=== PATIENT | female | born 1940 | race African-American/Black ===

== ENCOUNTER 2017-10-04 02:32 | Observation (INO) | payer MEDICARE, MEDICAID ==
[~2017-10-04] VITALS: Ht 167.6 cm; Wt 93.0 kg
[2017-10-04] VITALS (7 sets, daily range): BP systolic 118–166; BP diastolic 60–101; PULSE 75–118; RESP 14–20; TEMP 97.7–98.4; O2SAT 96–100
[~2017-10-04 02:32] MED LIST: ERGO400T PO; ERYTOIN10 RIGHT EYE; FLUT50SP EACH NARE; HYDR-3516 PO; LEVOTAB PO; LOSA50TA PO; METF500T PO; MULT1TAB PO; OMEP20TA93 PO; PRIM250T PO; TRIA.025%T TOPICAL
[2017-10-04] MEDS ORDERED: PANTOPRAZOLE SODIUM 40 MG VIAL IVP ONE (03:15)
[2017-10-04] MEDS ORDERED: FAMOTIDINE 20 MG/2 ML VIAL IV PUSH ONE (03:15)
[2017-10-04] MEDS ORDERED: SODIUM CHLORIDE 0.9% FLUSH 10 ML FLUSH IV FLUSH PRN ×2 (03:15→05:45)
[2017-10-04 03:16] LABS: AUTOMATED NEUTROPHIL # 6.1 TH/MM3 (1.8-7.7); BASOPHIL % 0.4 % (0.0-2.0); EOSINOPHIL # 0.2 TH/MM3 (0-0.4); EOSINOPHIL % 2.5 % (0.0-4.0); HEMATOCRIT 36.6 % (35.0-46.0); HEMOGLOBIN 12.1 GM/DL (11.6-15.3); LYMPH % 24.5 % (9.0-44.0); LYMPHOCYTE # 2.3 TH/MM3 (1.0-4.8); MEAN CELL VOLUME 92.5 FL (80.0-100.0); MEAN CORPUSCULAR HEMOGLOBIN 30.6 PG (27.0-34.0); MEAN CORPUSCULAR HGB CONC 33.1 % (32.0-36.0); MEAN PLATELET VOLUME 8.3 FL (7.0-11.0); MONO % 8.1 % (0.0-8.0); MONOCYTE # 0.8 TH/MM3 (0-0.9); NEUT % 64.5 % (16.0-70.0); PLATELET COUNT 263 TH/MM3 (150-450); RED BLOOD COUNT 3.96 MIL/MM3 (4.00-5.30); WHITE BLOOD COUNT 9.5 TH/MM3 (4.0-11.0)
[2017-10-04] MEDS ORDERED: OMEP20TA93 PO (03:30)
[2017-10-04 03:50] LABS: ALBUMIN 3.3 GM/DL (3.4-5.0); ALT (GPT) 16 U/L (10-53); AST (GOT) 14 U/L (15-37); BICARBONATE 24.8 MEQ/L (21.0-32.0); BLOOD UREA NITROGEN 19 MG/DL (7-18); CALCIUM 8.5 MG/DL (8.5-10.1); CHLORIDE 106 MEQ/L (98-107); CREATININE 0.82 MG/DL (0.50-1.00); GLOMERULAR FILTRATION RATE 82 ML/MIN (>89); GLUCOSE,RANDOM 148 MG/DL (74-106); SODIUM (NA) 140 MEQ/L (136-145)
[2017-10-04 03:52] LABS: ALKALINE PHOSPHATASE 119 U/L (45-117); TOTAL BILIRUBIN ADULT 0.3 MG/DL (0.2-1.0); TOTAL PROTEIN 7.5 GM/DL (6.4-8.2)
--- NOTE | 2017-10-04 03:59 | PD ---
HPI Chief Complaint: GI Complaint Time Seen by Provider: 03:13 Travel History International Travel<30 days: No Contact w/Intl Traveler<30days: No Traveled to known affect area: No History of Present Illness HPI Patient is a 77-year-old female who tonight sat on the toilet and had bright red blood per rectum in the toilet. Patient has a history 2 years ago of having a heavy bleed after having C. difficile she had excessive diarrhea and then return to [facility]. She also says she had a episode of bleeding from hemorrhoids. She had seen Dr. Pedro the colorectal surgeon but denies ever having surgery or any need for colostomy. Patient is not diaphoretic not hypotensive however she does have bright red blood on her lower legs and feet. She denies abdomen pain she denies change in stool color she denies any other symptoms no pain in her abdomen. She reports having had a colonoscopy years ago with no findings. PFSH Past Medical History Asthma: Yes Cancer: No Cardiovascular Problems: Yes (HTN) Diabetes: Yes (Metformin) Patient Takes Glucophage: Yes Hypertension: Yes Psychiatric: No Respiratory: Yes (Asthma) Thyroid Disease: Yes Tubal Ligation: Yes Past Surgical History Pacemaker: No Other Surgery: Yes (HERNIA REMOVAL) Social History Alcohol Use: No Tobacco Use: No Substance Use: No Allergies-Medications (Allergen,Severity, Reaction): Coded Allergies: No Known Allergies (Unverified Allergy, Unknown, 10/04/17) Reported Meds & Prescriptions Reported Meds & Active Scripts Active Reported Omeprazole 20 Mg Tab 20 Mg PO DAILY Hydrocodone-Acetaminophen 5-325 mg Tab 1 Tab PO Q4H PRN Centrum Silver Adult 50+ (Multiple Vitamins W/ Minerals) 1 Tab Tab 1 Tab PO DAILY Primidone 250 Mg Tablet 1 Tab PO DAILY Metformin (Metformin HCl) 500 Mg Tab 500 Mg PO DAILY With a meal Losartan (Losartan Potassium) 50 Mg Tab 50 Mg PO DAILY Levocetirizine 5 Mg Tab 5 Mg PO DAILY Fluticasone Nasal [place] 50 Mcg/Act Naspr 50 Mcg EACH NARE BID 50 mcg/spray Review of Systems Except as stated in HPI: all other systems reviewed are Neg Physical Exam Narrative GENERAL: Awake alert nontoxic-appearing SKIN: Warm and dry. HEAD: Atraumatic. Normocephalic. EYES: Pupils equal and round. No scleral icterus. No injection or drainage. ENT: No nasal bleeding or discharge. Mucous membranes pink and moist. NECK: Trachea midline. No JVD. CARDIOVASCULAR: Regular rate and rhythm. RESPIRATORY: No accessory muscle use. Clear to auscultation. Breath sounds equal bilaterally. GASTROINTESTINAL: Abdomen soft, non-tender, nondistended. Hepatic and splenic margins not palpable. MUSCULOSKELETAL: Extremities without clubbing, cyanosis, or edema. No obvious deformities. Rectal exam bright red blood per rectum NEUROLOGICAL: Awake and alert. No obvious cranial nerve deficits. Motor grossly within normal limits. Five out of 5 muscle strength in the arms and legs. Normal speech. PSYCHIATRIC: Appropriate mood and affect; insight and judgment normal. Data Data Last Documented VS Vital Signs Date Time Temp Pulse Resp B/P (MAP) Pulse Ox O2 Delivery O2 Flow Rate FiO2 10/04/17 05:14 94 18 118/73 (88) 97 Room Air 10/04/17 02:43 97.7 Orders Orders Complete Blood Count With Diff (10/04/17 02:48) Prothrombin Time / Inr (Pt) (10/04/17 02:48) Act Partial Throm Time (Ptt) (10/04/17 02:48) Ecg Monitoring (10/04/17 02:48) Orthostatic Vital Signs (10/04/17 02:48) Oximetry (10/04/17 02:48) Oxygen Administration (10/04/17 02:48) Iv Access Insert/Monitor (10/04/17 02:48) Type And Screen (10/04/17 02:48) Lipase (10/04/17 03:14) Urinalysis - C+S If Indicated (10/04/17 03:14) Abdomen, Flat & Upright (10/04/17 ) Pantoprazole Inj (Protonix Inj) (10/04/17 03:15) Sodium Chloride 0.9% Flush (Ns Flush) (10/04/17 03:15) Famotidine Inj (Pepcid Inj) (10/04/17 03:15) Comprehensive Metabolic Panel (10/04/17 03:25) Admit Order (Ed Use Only) (10/04/17 05:30) C Diff Toxin Pcr (10/04/17 05:32) Place In Observation (10/04/17 ) Vital Signs (Adult) Q4H (10/04/17 05:35) Activity Oob With Assistance (10/04/17 05:35) Diet Clear Liquid (10/04/17 Breakfast) Sodium Chloride 0.9% Flush (Ns Flush) (10/04/17 05:45) Sodium Chloride 0.9% Flush (Ns Flush) (10/04/17 09:00) Acetaminophen (Tylenol) (10/04/17 05:45) Scd Bilateral/Knee High RYAN.BID (10/04/17 05:35) Naloxone Inj (Narcan Inj) (10/04/17 05:45) Magnesium Hydroxide Liq (Milk Of Magnesi (10/04/17 05:45) Sennosides (Senokot) (10/04/17 05:45) Bisacodyl Supp (Dulcolax Supp) (10/04/17 05:45) Lactulose Liq (Lactulose Liq) (10/04/17 05:45) Consult Gastroenterology (10/04/17 ) Labs Laboratory Tests Test 10/04/17 03:00 10/04/17 03:25 10/04/17 04:55 White Blood Count 9.5 TH/MM3 Red Blood Count 3.96 MIL/MM3 Hemoglobin 12.1 GM/DL Hematocrit 36.6 % Mean Corpuscular Volume 92.5 FL Mean Corpuscular Hemoglobin 30.6 PG Mean Corpuscular Hemoglobin Concent 33.1 % Red Cell Distribution Width 14.0 % Platelet Count 263 TH/MM3 Mean Platelet Volume 8.3 FL Neutrophils (%) (Auto) 64.5 % Lymphocytes (%) (Auto) 24.5 % Monocytes (%) (Auto) 8.1 % Eosinophils (%) (Auto) 2.5 % Basophils (%) (Auto) 0.4 % Neutrophils # (Auto) 6.1 TH/MM3 Lymphocytes # (Auto) 2.3 TH/MM3 Monocytes # (Auto) 0.8 TH/MM3 Eosinophils # (Auto) 0.2 TH/MM3 Basophils # (Auto) 0.0 TH/MM3 CBC Comment DIFF FINAL Differential Comment Prothrombin Time 10.0 SEC Prothromb Time International Ratio 1.0 RATIO Activated Partial Thromboplast Time 26.0 SEC Blood Urea Nitrogen 19 MG/DL Creatinine 0.82 MG/DL Random Glucose 148 MG/DL Total Protein 7.5 GM/DL Albumin 3.3 GM/DL Calcium Level 8.5 MG/DL Alkaline Phosphatase 119 U/L Aspartate Amino Transf (AST/SGOT) 14 U/L Alanine Aminotransferase (ALT/SGPT) 16 U/L Total Bilirubin 0.3 MG/DL Sodium Level 140 MEQ/L Potassium Level 4.0 MEQ/L Chloride Level 106 MEQ/L Carbon Dioxide Level 24.8 MEQ/L Anion Gap 9 MEQ/L Estimat Glomerular Filtration Rate 82 ML/MIN Lipase 96 U/L Urine Color YELLOW Urine Turbidity CLEAR Urine pH 5.0 Urine Specific [place] 1.024 Urine Protein TRACE mg/dL Urine Glucose (UA) NEG mg/dL Urine Ketones NEG mg/dL Urine Occult Blood MOD Urine Nitrite NEG Urine Bilirubin NEG Urine Urobilinogen LESS THAN 2.0 MG/DL Urine Leukocyte Esterase TRACE Urine RBC 1 /hpf Urine WBC 2 /hpf Urine Squamous Epithelial Cells 1 /hpf Urine Bacteria RARE /hpf Urine Hyaline Casts 5 /lpf Urine Mucus FEW /lpf Microscopic Urinalysis Comment CULT NOT INDICATED MDM Medical Decision Making Medical Screen Exam Complete: Yes Emergency Medical Condition: Yes Differential Diagnosis pt has rectal bleeding and cause could be AV malformation diarrhea with colitis erosion into vein bleed other Narrative Course rectal exam guiaic postive no gross blood on the glove , hemoglobin 12 admit to med surg for GI colonscopy to diagnose Diagnosis Primary Impression: Rectal bleeding Admitting Information Admitting Physician Requests: Observation Madan Flores MD October 04, 2017 03:59
--- NOTE | 2017-10-04 04:20 | RADRPT ---
EXAM DATE: 10/04/2017 4:15 AM EDT AGE/SEX: 77 years / Female INDICATIONS: Patient complains of rectal bleeding and abdominal pain. CLINICAL DATA: This is the patient's initial encounter. Patient reports that signs and symptoms have been present for 1 day and indicates a pain score of 4/10. MEDICAL/SURGICAL HISTORY: . Polyps. . Polyps removed from colon. COMPARISON: No prior [facility] exams available for comparison. FINDINGS: Supine and upright views of the abdomen were performed. There is a moderate amount stool seen in the proximal and mid aspects of the colon. Significant stool in the sigmoid colon and rectum is not seen. Dilated bowel is not seen. Degenerative change in the lower lumbar spine. There appears to be surgic al material in the lower abdomen. CONCLUSION: Moderate stool in the colon. This appears to be in the ascending, transverse and proximal descending portions of the colon. Electronically signed by: Kun Whitney MD 10/04/2017 4:19 AM EDT
[2017-10-04 05:33] LABS: BACTERIA, URINE RARE /hpf; BILIRUBIN, URINE NEG (NEG); BLOOD, URINE MOD (NEG); GLUCOSE,URINE NEG (NEG); HYALINE CAST, URINE 5 /lpf (RARE); KETONE, URINE NEG (NEG); MUCUS URINE FEW /lpf (OCC); NITRITE,URINE NEG (NEG); SQUAMOUS EPITHELIAL CELL URINE 1 /hpf (0-5); URINE COLOR YELLOW (YELLW/STRAW); URINE LEUKOCYTE ESTERASE TRACE (NEG)
[2017-10-04] MEDS ORDERED: LACTULOSE SYRUP 20 GM/30 ML CUP PO PRN (05:45)
[2017-10-04] MEDS ORDERED: SENNOSIDES 8.6 MG TAB PO PRN (05:45)
[2017-10-04] MEDS ORDERED: BISACODYL 10 MG SUPP RECTAL PRN (05:45)
[2017-10-04] MEDS ORDERED: ACETAMINOPHEN 325 MG TAB PO PRN (05:45)
[2017-10-04] MEDS ORDERED: NALOXONE HCL 0.4 MG/ML AMP IV PUSH PRN (05:45)
[2017-10-04] MEDS ORDERED: MAGNESIUM HYDROXIDE SUSP 30 ML CUP PO PRN (05:45)
--- NOTE | 2017-10-04 08:24 | HHI.HP ---
[facility] Physician Radha Sosa M.D. Admission Diagnosis rectal bleeding Diagnoses: Chief Complaint: rectal bleeding Travel History International Travel<30 Days: No Contact w/Intl Traveler <30 Da: No Traveled to Known Affected Are: No History of Present Illness 77 year old female with a history of HTN, DM2, Asthma, internal hemorrhoids and diverticulosis presented to the emergency department for evaluation of rectal bleeding. Patient sat on the toilet last night and had bright red blood per rectum in the toilet. Patient has a history 2 years ago of having a heavy bleed after having C. difficile she had excessive diarrhea and then return to blood. She also says she had a episode of bleeding from hemorrhoids. She had seen Dr. Pedro the colorectal surgeon but denies ever having surgery or any need for colostomy. Patient is not diaphoretic not hypotensive however she does have bright red blood on her lower legs and feet. She denies abdomen pain she denies change in stool color she denies any other symptoms no pain in her abdomen. She reports having had a colonoscopy years ago with no findings. Review of Systems Except as stated in HPI: all other systems reviewed are Neg Past Family Social History Past Medical History GI bleed Internal hemorrhoids Diverticulosis Asthma HTN Sinus problems Diabetes: metformin Past Surgical History Hernia removal- umbilical Reported Medications Reported Meds & Active Scripts Active Reported Omeprazole 20 Mg Tab 20 Mg PO DAILY Hydrocodone-Acetaminophen 5-325 mg Tab 1 Tab PO Q4H PRN Centrum Silver Adult 50+ (Multiple Vitamins W/ Minerals) 1 Tab Tab 1 Tab PO DAILY Primidone 250 Mg Tablet 1 Tab PO DAILY Metformin (Metformin HCl) 500 Mg Tab 500 Mg PO DAILY With a meal Losartan (Losartan Potassium) 50 Mg Tab 50 Mg PO DAILY Levocetirizine 5 Mg Tab 5 Mg PO DAILY Fluticasone Nasal [place] 50 Mcg/Act Naspr 50 Mcg EACH NARE BID 50 mcg/spray Allergies: Coded Allergies: No Known Allergies (Unverified Allergy, Unknown, 10/04/17) Family History Mom: HTN, of heart attack Dad: HTN Sister: heart attack Social History No tobacco , drug use or alcohol use. Physical Exam Vital Signs Vital Signs Date Time Temp Pulse Resp B/P (MAP) Pulse Ox O2 Delivery O2 Flow Rate FiO2 10/04/17 07:37 85 14 141/79 (99) 100 Room Air 10/04/17 05:14 94 18 118/73 (88) 97 Room Air 10/04/17 03:26 98 Room Air 10/04/17 03:26 118 18 158/101 (120) 97 Room Air 10/04/17 03:26 98 Room Air 10/04/17 02:43 97.7 112 18 166/97 (120) 96 Physical Exam GENERAL: This is a well-nourished, well-developed patient, in no apparent distress. SKIN: No rashes, ecchymoses or lesions. Cool and dry. HEAD: Atraumatic. Normocephalic. No temporal or scalp tenderness. EYES: Pupils equal round and reactive. Extraocular motions intact. No scleral icterus. No injection or drainage. ENT: Nose without bleeding, purulent drainage or septal hematoma. Throat without erythema, tonsillar hypertrophy or exudate. Uvula midline. Airway patent. NECK: Trachea midline. No JVD or lymphadenopathy. Supple, nontender, no meningeal signs. CARDIOVASCULAR: Regular rate and rhythm without murmurs, gallops, or rubs. RESPIRATORY: Clear to auscultation. Breath sounds equal bilaterally. No wheezes , rales, or rhonchi. GASTROINTESTINAL: Abdomen soft, non-tender, nondistended. No hepato-splenomegaly , or palpable masses. No guarding. MUSCULOSKELETAL: Extremities without clubbing, cyanosis, or edema. No joint tenderness, effusion, or edema noted. No calf tenderness. Negative Homans sign bilaterally. NEUROLOGICAL: Awake and alert. Cranial nerves II through XII intact. Motor and sensory grossly within normal limits. Five out of 5 muscle strength in all muscle groups. Normal speech. Laboratory Laboratory Tests Test 10/04/17 03:00 10/04/17 03:25 10/04/17 04:55 White Blood Count 9.5 Red Blood Count 3.96 Hemoglobin 12.1 Hematocrit 36.6 Mean Corpuscular Volume 92.5 Mean Corpuscular Hemoglobin 30.6 Mean Corpuscular Hemoglobin Concent 33.1 Red Cell Distribution Width 14.0 Platelet Count 263 Mean Platelet Volume 8.3 Neutrophils (%) (Auto) 64.5 Lymphocytes (%) (Auto) 24.5 Monocytes (%) (Auto) 8.1 Eosinophils (%) (Auto) 2.5 Basophils (%) (Auto) 0.4 Neutrophils # (Auto) 6.1 Lymphocytes # (Auto) 2.3 Monocytes # (Auto) 0.8 Eosinophils # (Auto) 0.2 Basophils # (Auto) 0.0 CBC Comment DIFF FINAL Differential Comment Prothrombin Time 10.0 Prothromb Time International Ratio 1.0 Activated Partial Thromboplast Time 26.0 Blood Urea Nitrogen 19 Creatinine 0.82 Random Glucose 148 Total Protein 7.5 Albumin 3.3 Calcium Level 8.5 Alkaline Phosphatase 119 Aspartate Amino Transf (AST/SGOT) 14 Alanine Aminotransferase (ALT/SGPT) 16 Total Bilirubin 0.3 Sodium Level 140 Potassium Level 4.0 Chloride Level 106 Carbon Dioxide Level 24.8 Anion Gap 9 Estimat Glomerular Filtration Rate 82 Lipase 96 Urine Color YELLOW Urine Turbidity CLEAR Urine pH 5.0 Urine Specific [place] 1.024 Urine Protein TRACE Urine Glucose (UA) NEG Urine Ketones NEG Urine Occult Blood MOD Urine Nitrite NEG Urine Bilirubin NEG Urine Urobilinogen LESS THAN 2.0 Urine Leukocyte Esterase TRACE Urine RBC 1 Urine WBC 2 Urine Squamous Epithelial Cells 1 Urine Bacteria RARE Urine Hyaline Casts 5 Urine Mucus FEW Microscopic Urinalysis Comment CULT NOT INDICATED Result Diagram: 10/04/17 0300 10/04/17 0325 Imaging Last Impressions Abdomen X-Ray 10/04/17 0000 Signed Impressions: CONCLUSION: Moderate stool in the colon. This appears to be in the ascending, transverse an d proximal descending portions of the colon. Caprini VTE Risk Assessment Caprini VTE Risk Assessment: Mod/High Risk (score >= 2) Caprini Risk Assessment Model Point Value = 1 Point Value = 2 Point Value = 3 Point Value = 5 Age 41-60 Minor surgery BMI > 25 kg/m2 Swollen legs Varicose veins or History of unexplained or recurrent spontaneous Oral contraceptives or hormone replacement Sepsis (< 1 month) Serious lung disease, including pneumonia (< 1 month) Abnormal pulmonary function Acute myocardial infarction Congestive heart failure (< 1 month) History of inflammatory bowel disease Medical patient at bed rest Age 61-74 Arthroscopic surgery Major open surgery (> 45 min) Laparoscopic surgery (> 45 min) Malignancy Confined to bed (> 72 hours) Immobilizing plaster cast Central venous access Age >= 75 History of VTE Family history of VTE Factor V Leiden Prothrombin [id number] Lupus anticoagulant Anticardiolipin antibodies Elevated serum homocysteine Heparin-induced thrombocytopenia Other congenital or acquired thrombophilia Stroke (< 1 month) Elective arthroplasty Hip, pelvis, or leg fracture Acute spinal cord injury (< 1 month) Prophylaxis Regimen Total Risk Factor Score Risk Level Prophylaxis Regimen 0-1 Low Early ambulation 2 Moderate Order ONE of the following: *Sequential Compression Device (SCD) *Heparin 5000 units SQ BID 3-4 Higher Order ONE of the following medications: *Heparin 5000 units SQ TID *Enoxaparin/Lovenox 40 mg SQ daily (WT < 150 kg, CrCl > 30 mL/min) *Enoxaparin/Lovenox 30 mg SQ daily (WT < 150 kg, CrCl > 10-29 mL/min) *Enoxaparin/Lovenox 30 mg SQ BID (WT < 150 kg, CrCl > 30 mL/min) AND/OR *Sequential Compression Device (SCD) 5 or more Highest Order ONE of the following medications: *Heparin 5000 units SQ TID (Preferred with Epidurals) *Enoxaparin/Lovenox 40 mg SQ daily (WT < 150 kg, CrCl > 30 mL/min) *Enoxaparin/Lovenox 30 mg SQ daily (WT < 150 kg, CrCl > 10-29 mL/min) *Enoxaparin/Lovenox 30 mg SQ BID (WT < 150 kg, CrCl > 30 mL/min) AND *Sequential Compression Device (SCD) Assessment and Plan Assessment and Plan 74 year old female with history of internal hemorrhoids and diverticulosis and prior GI bleed presents with lower gastrointestinal bleeding per rectum. Gastrointestinal bleed- Rectal bleeding - Gastroenterology consulted for poss colonoscopy - Patient follows with CRS as OP Francisco Willis GERD and hiatal hernia. - Continue PPIs Diabetes type II. - Hold metformin - Low dose sliding scale - Hold metformin - Diabetic diet. Hypertension. Restart home meds. On losartan . Monitor BP and adjust meds as need. Asthma, controlled at this time - Flovent 2 puffs bid. - Duonebs q6hr PRN for shortness of breath. DVT ppx: SCD/TEDs. CI chemical ppx as patient with rectal bleeding Discussed Condition With pt, nurse Marialuisa Flower MD October 04, 2017 08:24
[2017-10-04] MEDS ORDERED: ACETAMINOPHEN/HYDROcodone 325 MG/5 MG TAB PO PRN (08:30)
[2017-10-04] MEDS ORDERED: PANTOPRAZOLE SOD 20 MG DELAYED RELEASE TAB PO SCH (09:00)
[2017-10-04] MEDS: LOSARTAN 50 MG TAB PO SCH (09:18)
[2017-10-04] MEDS: FLUTICASONE PROPIONATE 50 MCG/ACT 16 GM NASAL SPRAY EACH NARE SCH ×2 (09:18→21:00)
[2017-10-04] MEDS: CETIRIZINE HCL 10 MG TAB PO SCH (09:18)
[2017-10-04] MEDS: SODIUM CHLORIDE 0.9% FLUSH 10 ML FLUSH IV FLUSH SCH ×2 (09:18→21:09)
[2017-10-04] MEDS: PRIMIDONE 250 MG TAB PO SCH (10:08)
--- NOTE | 2017-10-04 11:13 | PD.CONS ---
HPI History of Present Illness This is a 77 year old female who was admitted to the hospital on 10/04/2017 with symptoms of bright red rectal bleeding this early a.m. Patient states that she went to the bathroom to have a bowel movement and when she stood up she noticed the toilet was full of bright red blood she did note some dark blood around the stool and denies any straining. Patient now does note some lower abdominal cramping and does on occasion have some constipation. Currently patient is still having some mild rectal bleeding and oozing more controlled at this point. Abdominal x-rays done this a.m. show moderate amount of stool in the colon which appears to be in the hands sending transverse and proximal descending portions of colon. Patient denies any diarrhea, no nausea or vomiting or dysphasia. Patient does note mild dyspepsia acute on chronic and takes omeprazole 20 mg daily which controls her symptoms most of the time. According to the patient last colonoscopy was 2-3 years ago and patient does note history of polyps. Patient has no family history of colon cancer. Labs show current hemoglobin 12.1. According to the record patient has seen Dr. Pedro the colorectal surgeon in the past but denies any surgical interventions during that time. Patient is currently not taking any blood thinners. (Violeta Melchor) PFSH Past Medical History According to the record GI bleed Internal hemorrhoids Diverticulosis, history of colon polyps Asthma HTN Sinus problems Diabetes: metformin Past Surgical History Hernia removal- umbilical EGD and colonoscopy 2-3 years ago with a history of polyps (Violeta Melchor) Coded Allergies: No Known Allergies (Unverified Allergy, Unknown, 10/04/17) Medications Administered Medications Medications (Trade) Dose Ordered Sig/Janie Route PRN Reason Start Time Stop Time Status Last Admin Dose Admin Sodium Chloride (NS Flush) 2 ml BID IV FLUSH 10/04/17 09:00 10/04/17 09:18 Fluticasone Propionate (Flonase Dayo Spr) 2 spray BID EACH NARE 10/04/17 09:00 10/04/17 09:18 Losartan Potassium (Cozaar) 50 mg DAILY PO 10/04/17 09:00 10/04/17 09:18 Primidone (Mysoline) 250 mg DAILY PO 10/04/17 09:00 5/25/18 10:08 Cetirizine HCl (ZyrTEC) 10 mg DAILY PO 10/04/17 09:00 10/04/17 09:18 Family History Mom: HTN, of heart attack Dad: HTN Sister: heart attack No family history of colon cancer Social History No tobacco , drug use or alcohol use. (Violeta Melchor) Review of Systems Gastrointestinal: COMPLAINS OF: Bloody stools (Bright red rectal bleeding 1 this a.m. large amount), Nausea (Chronic GERD) (Violeta Melchor) GI Exam Vitals I&O Vital Signs Date Time Temp Pulse Resp B/P (MAP) Pulse Ox O2 Delivery O2 Flow Rate FiO2 10/04/17 07:37 85 14 141/79 (99) 100 Room Air 10/04/17 05:14 94 18 118/73 (88) 97 Room Air 10/04/17 03:26 98 Room Air 10/04/17 03:26 118 18 158/101 (120) 97 Room Air 10/04/17 03:26 98 Room Air 10/04/17 02:43 97.7 112 18 166/97 (120) 96 I/O 10/03/17 10/03/17 10/03/17 10/04/17 10/04/17 10/04/17 07:00 15:00 23:00 07:00 15:00 23:00 Intake Total 250 ml Output Total 100 ml Balance 150 ml Intake Oral 250 ml Output Stool Total 100 ml # Bowel Movements 1 1 Imaging Last Impressions Abdomen X-Ray 10/04/17 0000 Signed Impressions: CONCLUSION: Moderate stool in the colon. This appears to be in the ascending, transverse an d proximal descending portions of the colon. Laboratory Test 10/04/17 03:00 10/04/17 03:25 10/04/17 04:55 10/04/17 09:00 White Blood Count 9.5 TH/MM3 Red Blood Count 3.96 MIL/MM3 Hemoglobin 12.1 GM/DL Hematocrit 36.6 % Mean Corpuscular Volume 92.5 FL Mean Corpuscular Hemoglobin 30.6 PG Mean Corpuscular Hemoglobin Concent 33.1 % Red Cell Distribution Width 14.0 % Platelet Count 263 TH/MM3 Mean Platelet Volume 8.3 FL Neutrophils (%) (Auto) 64.5 % Lymphocytes (%) (Auto) 24.5 % Monocytes (%) (Auto) 8.1 % Eosinophils (%) (Auto) 2.5 % Basophils (%) (Auto) 0.4 % Neutrophils # (Auto) 6.1 TH/MM3 Lymphocytes # (Auto) 2.3 TH/MM3 Monocytes # (Auto) 0.8 TH/MM3 Eosinophils # (Auto) 0.2 TH/MM3 Basophils # (Auto) 0.0 TH/MM3 CBC Comment DIFF FINAL Differential Comment Prothrombin Time 10.0 SEC Prothromb Time International Ratio 1.0 RATIO Activated Partial Thromboplast Time 26.0 SEC Blood Urea Nitrogen 19 MG/DL Creatinine 0.82 MG/DL Random Glucose 148 MG/DL Total Protein 7.5 GM/DL Albumin 3.3 GM/DL Calcium Level 8.5 MG/DL Alkaline Phosphatase 119 U/L Aspartate Amino Transf (AST/SGOT) 14 U/L Alanine Aminotransferase (ALT/SGPT) 16 U/L Total Bilirubin 0.3 MG/DL Sodium Level 140 MEQ/L Potassium Level 4.0 MEQ/L Chloride Level 106 MEQ/L Carbon Dioxide Level 24.8 MEQ/L Anion Gap 9 MEQ/L Estimat Glomerular Filtration Rate 82 ML/MIN Lipase 96 U/L Urine Color YELLOW Urine Turbidity CLEAR Urine pH 5.0 Urine Specific [place] 1.024 Urine Protein TRACE mg/dL Urine Glucose (UA) NEG mg/dL Urine Ketones NEG mg/dL Urine Occult Blood MOD Urine Nitrite NEG Urine Bilirubin NEG Urine Urobilinogen LESS THAN 2.0 MG/DL Urine Leukocyte Esterase TRACE Urine RBC 1 /hpf Urine WBC 2 /hpf Urine Squamous Epithelial Cells 1 /hpf Urine Bacteria RARE /hpf Urine Hyaline Casts 5 /lpf Urine Mucus FEW /lpf Microscopic Urinalysis Comment CULT NOT INDICATED Stool C. difficile Toxin (PCR) NEGATIVE Stl C. difficile Toxin Epiderm 027 PRESUMPTIVE NEGATIVE Physical Examination HEENT: Speech understandable, normocephalic; atraumatic; no jaundice. No hematemesis NECK: Neck is supple, no JVD, no lymphadenopathy. CHEST: Chest is clear to auscultation and percussion no obvious rhonchi CARDIAC: Regular rate and rhythm ABDOMEN: Soft, no obvious distention, lower abdominal cramping and mild mid abdominal discomfort to light palpation no hepatosplenomegaly; bowel sounds are present in all four quadrants. EXTREMITIES: No clubbing, cyanosis, or edema. SKIN: Dry, no rash; no jaundice. SEAMER: No focal deficits; alert and oriented times three., Fair historian (Violeta Melchor) Assessment and Plan Assessment: (1) Rectal bleeding ICD Codes: K62.5 - Hemorrhage of anus and rectum Status: Acute Plan 77-year-old female presented to the hospital on 10/04/2017 with bright red rectal bleeding early in the a.m. after having a bowel movement. She states this was the first onset and did note a large amount of dark followed with bright red bleeding in the toilet without straining . patient has had problems with internal hemorrhoids and diverticulosis in the past has been seen by Dr. Pedro the colorectal surgeon but never had any further surgical workup or procedure. Patient does have a history of GERD and dyspepsia and has been taking omeprazole 20 mg for years. She now complains of some lower abdominal cramping, and still having some very minimal small amount of bloody discharge from her rectum. Current hemoglobin is 12.1. Patient denies any family history of colon cancer. Does note previous EGD and colon done and does have a history of polyps as well as GERD. No current nausea or vomiting or dysphasia. Abdominal x-rays this a.m. show moderate amount of stool in the ascending transverse and proximal descending portions of the colon. Patient is not noted to be taken any blood thinners at this time. Plan Consent for EGD and colonoscopy in the a.m. Prep GoLYTELY to start today Clear liquid diet Nothing to eat or drink after midnight Monitor labs with special attention to hemoglobin PPI increased dose to 40 mg of Protonix daily Bowel regimen Reflux precautions Further recommendations to follow Patient was seen per myself and Dr. Chavez, note was written on his behalf (Violeta Melchor) Physician Comments Patient seen and examined Agree with above Continue with current supportive care Monitor labs Plan on an EGD with colonoscopy tomorrow (Rasta Chavez MD) Violeta Melchor October 04, 2017 11:13 Rasta Chavez MD October 04, 2017 12:27
[2017-10-04] MEDS ORDERED: PEG (High)/E-LYTE SOLN 4000 ML BTL PO ONE (12:00)
[2017-10-04 20:33] LABS: HEMATOCRIT 32.8 % (35.0-46.0); HEMOGLOBIN 10.9 GM/DL (11.6-15.3)
[2017-10-05 04:08] VITALS: BP 129/62; PULSE 69; RESP 16; TEMP 98.2; O2SAT 96
[2017-10-05] MEDS ORDERED: CHLORHEXIDINE GLUCONATE 2 % 1 PACK (2 CLOTHS) TOPICAL PRN (06:30)
[2017-10-05] MEDS ORDERED: LACTATED RINGER'S 1000 ML IV PRN (06:30)
[2017-10-05] MEDS ORDERED: SODIUM CHLORID 0.9% 500 ML IV PRN (06:30)
[2017-10-05] MEDS ORDERED: POVIDONE IODINE 5% (ANTISEPSIS KIT) 4 APPLICATIONS EACH NARE PRN (06:30)
[2017-10-05 07:40] LABS: HEMATOCRIT 29.2 % (35.0-46.0); MEAN CORPUSCULAR HEMOGLOBIN 31.7 PG (27.0-34.0); MEAN CORPUSCULAR HGB CONC 34.1 % (32.0-36.0); MEAN PLATELET VOLUME 8.5 FL (7.0-11.0); PLATELET COUNT 224 TH/MM3 (150-450); RED BLOOD COUNT 3.14 MIL/MM3 (4.00-5.30); RED CELL DISTRIBUTION WIDTH 14.1 % (11.6-17.2); WHITE BLOOD COUNT 6.4 TH/MM3 (4.0-11.0)
[2017-10-05 08:08] VITALS: BP_SYST 128; PULSE 80; RESP 20; TEMP 98.2; O2SAT 98
[2017-10-05] MEDS: FLUTICASONE PROPIONATE 50 MCG/ACT 16 GM NASAL SPRAY EACH NARE SCH ×2 (09:00→21:14)
--- NOTE | 2017-10-05 09:34 | HHI.PR ---
Subjective Remarks Follow-up rectal bleeding. No further bleeding. Received colon prep Objective Vitals Vital Signs Date Time Temp Pulse Resp B/P (MAP) Pulse Ox O2 Delivery O2 Flow Rate FiO2 10/05/17 08:08 98.2 80 20 128/ 98 10/05/17 04:08 98.2 69 16 129/62 (84) 96 10/04/17 23:09 98.2 82 16 119/60 (79) 99 10/04/17 16:07 98.4 75 20 145/70 (95) 99 10/04/17 15:57 80 16 138/73 (94) 96 I/O 10/04/17 10/04/17 10/04/17 10/05/17 10/05/17 10/05/17 07:00 15:00 23:00 07:00 15:00 23:00 Intake Total 250 ml Output Total 100 ml Balance 150 ml Intake Oral 250 ml Output Stool Total 100 ml # Bowel Movements 1 1 Result Diagram: 10/05/17 0530 10/04/17 0325 Imaging Last Impressions Abdomen X-Ray 10/04/17 0000 Signed Impressions: CONCLUSION: Moderate stool in the colon. This appears to be in the ascending, transverse an d proximal descending portions of the colon. Objective Remarks GENERAL: This is a well-nourished, well-developed patient, in no apparent distress. SKIN: No rashes, ecchymoses or lesions. Cool and dry. CARDIOVASCULAR: Regular rate and rhythm without murmurs, gallops, or rubs. RESPIRATORY: Clear to auscultation. Breath sounds equal bilaterally. No wheezes , rales, or rhonchi. GASTROINTESTINAL: Abdomen soft, non-tender, nondistended. No guarding. MUSCULOSKELETAL: Extremities without clubbing, cyanosis, or edema. No joint tenderness, effusion, or edema noted. No calf tenderness. Negative Homans sign bilaterally. NEUROLOGICAL: Awake and alert. Cranial nerves II through XII intact. Motor and sensory grossly within normal limits. Five out of 5 muscle strength in all muscle groups. Normal speech. Procedures For endoscopy A/P Problem List: (1) Rectal bleeding ICD Code: K62.5 - Hemorrhage of anus and rectum Status: Acute Assessment and Plan 74 year old female with history of internal hemorrhoids and diverticulosis and prior GI bleed presents with lower gastrointestinal bleeding per rectum. Gastrointestinal bleed- Rectal bleeding. No recurrence but hemodynamically stable. - Gastroenterology consulted for endoscopy today - Patient follows with CRS as OP Francisco Willis Anemia secondary to acute blood loss. Asymptomatic GERD and hiatal hernia. - Continue PPIs Diabetes type II. - Hold metformin - Low dose sliding scale - Hold metformin - Diabetic diet. Hypertension. Restart home meds. On losartan . Monitor BP and adjust meds as need. Asthma, controlled at this time - Flovent 2 puffs bid. - Duonebs q6hr PRN for shortness of breath. DVT ppx: SCD/TEDs. CI chemical ppx as patient with rectal bleeding Discharge Planning Discharge patient to home when cleared by GI Condition on discharge: Improved Regular Diet as tolerated Ad Caity activity Rx written: Per GI Follow-up with primary care physician, CRS/GI Justo To MD October 05, 2017 09:34
--- NOTE | 2017-10-05 09:44 | HHI.DCPOC ---
Discharge Care Plan Diagnosis: (1) Rectal bleeding Your Health Problems Are: Difficulty with ADL Exercise Tolerance Goals to Promote Your Health * To prevent worsening of your condition and complications * To maintain your health at the optimal level Directions to Meet Your Goals Take your medications as prescribed Follow your dietary instruction Follow activity as directed Keep your appointments as scheduled Take your immunizations and boosters as scheduled If your symptoms worsen call your PCP, if no PCP go to Urgent Care Center or Emergency Room Smoking is Dangerous to Your Health. Avoid second hand smoke Call the 24-hour hour crisis hotline for domestic abuse at Justo To MD October 05, 2017 09:44
[2017-10-05] MEDS ORDERED: DEXTROSE 50% IN WATER 50 ML VIAL(D50) IV PUSH PRN (09:45)
[2017-10-05] MEDS ORDERED: GLUCAGON 1 MG/ML VIAL OTHER PRN (09:45)
[2017-10-05 13:34] VITALS: BP 180/83; PULSE 63; RESP 15; O2SAT 97
[2017-10-05] MEDS: PANTOPRAZOLE SOD 40 MG DELAYED RELEASE TAB PO SCH (13:37)
[2017-10-05] MEDS: LOSARTAN 50 MG TAB PO SCH (13:37)
[2017-10-05] MEDS: CETIRIZINE HCL 10 MG TAB PO SCH (13:37)
[2017-10-05] MEDS: PRIMIDONE 250 MG TAB PO SCH (13:37)
[2017-10-05] MEDS: SODIUM CHLORIDE 0.9% FLUSH 10 ML FLUSH IV FLUSH SCH ×2 (13:38→21:00)
[2017-10-05] MEDS ORDERED: DO NOT ADM ANY ANTICOAGULANT DRUGS PRN (13:45)
[2017-10-05 17:40] VITALS: BP 148/74; PULSE 75; RESP 16; TEMP 98; O2SAT 98
[2017-10-05] MEDS ORDERED: PROPOFOL 200 MG/20 ML AMP IV ONE (17:51)
[2017-10-05 20:56] VITALS: BP 136/74; PULSE 82; RESP 16; TEMP 98; O2SAT 98
[2017-10-05 22:57] VITALS: BP 135/61; PULSE 69; RESP 16; TEMP 98; O2SAT 99
[2017-10-06 04:27] VITALS: BP 119/66; PULSE 78; RESP 16; TEMP 98.6; O2SAT 97
[2017-10-06] MEDS: INSULIN ASPART SUPPLEMENTAL SCALE SQ SCH ×2 (08:00→12:00)
--- NOTE | 2017-10-06 08:22 | HHI.PR ---
Subjective Remarks Follow-up GI bleed. No further bleeding. EGD colonoscopy results not available in the chart and EMR currently on a liquid diet discussed with RN. Discharge pending GI clearance Objective Vitals Vital Signs Date Time Temp Pulse Resp B/P (MAP) Pulse Ox O2 Delivery O2 Flow Rate FiO2 10/06/17 04:27 98.6 78 16 119/66 (83) 97 10/05/17 22:57 98.0 69 16 135/61 (85) 99 10/05/17 20:56 98.0 82 16 136/74 (94) 98 10/05/17 17:40 98.0 75 16 148/74 (98) 98 10/05/17 13:34 63 15 180/83 (115) 97 10/05/17 13:15 98.0 64 15 175/68 (103) 97 10/05/17 12:45 70 17 151/69 (96) 98 10/05/17 12:30 73 17 132/74 (93) 98 10/05/17 12:16 98.0 91 15 130/70 (90) 97 I/O 10/05/17 10/05/17 10/05/17 10/06/17 10/06/17 10/06/17 07:00 15:00 23:00 07:00 15:00 23:00 Intake Total 150 ml Balance 150 ml Other 150 ml Result Diagram: 10/05/17 0530 10/04/17 0325 Imaging Last Impressions Abdomen X-Ray 10/04/17 0000 Signed Impressions: CONCLUSION: Moderate stool in the colon. This appears to be in the ascending, transverse an d proximal descending portions of the colon. Objective Remarks GENERAL: This is a well-nourished, well-developed patient, in no apparent distress. SKIN: No rashes, ecchymoses or lesions. Cool and dry. CARDIOVASCULAR: Regular rate and rhythm without murmurs, gallops, or rubs. RESPIRATORY: Clear to auscultation. Breath sounds equal bilaterally. No wheezes , rales, or rhonchi. GASTROINTESTINAL: Abdomen soft, non-tender, nondistended. No guarding. MUSCULOSKELETAL: Extremities without clubbing, cyanosis, or edema. No joint tenderness, effusion, or edema noted. No calf tenderness. Negative Homans sign bilaterally. NEUROLOGICAL: Awake and alert. Cranial nerves II through XII intact. Motor and sensory grossly within normal limits. Five out of 5 muscle strength in all muscle groups. Normal speech. Procedures EGD and colonoscopy A/P Problem List: (1) Rectal bleeding ICD Code: K62.5 - Hemorrhage of anus and rectum Status: Acute Assessment and Plan 74 year old female with history of internal hemorrhoids and diverticulosis and prior GI bleed presents with lower gastrointestinal bleeding per rectum. Gastrointestinal bleed- Rectal bleeding. No recurrence and hemodynamically stable. -Status post endoscopy results not available RN to follow-up with GI - Patient follows with CRS as OP Francisco Willis Anemia secondary to acute blood loss. Asymptomatic GERD and hiatal hernia. - Continue PPIs Diabetes type II. - Hold metformin - Low dose sliding scale - Hold metformin - Diabetic diet. Hypertension. Restart home meds. On losartan . Monitor BP and adjust meds as need. Asthma, controlled at this time - Flovent 2 puffs bid. - Duonebs q6hr PRN for shortness of breath. DVT ppx: SCD/TEDs. CI chemical ppx as patient with rectal bleeding Discharge Planning Discharge patient to home when cleared by GI Condition on discharge: Improved Regular Diet as tolerated Ad Caity activity Rx written: Per GI Follow-up with primary care physician, CRS/GI Justo To MD October 06, 2017 08:22
--- NOTE | 2017-10-06 08:23 | HHI.FF ---
Face to Face Verification Diagnosis: (1) Rectal bleeding Physical Therapy Order: Evaluate and Treat, Improve ambulation, Strength and gait training I have seen patient Samanta Ramirez on 10/06/17. My clinical findings support the need for the requested home health care services because: Deconditioned w/ increased weakness I certify that my clinical findings support that this patient is homebound because: Unsafe to leave home unassisted Justo To MD October 06, 2017 08:23
[2017-10-06 08:34] VITALS: BP 125/70; PULSE 104; RESP 20; TEMP 97.8; O2SAT 98
--- NOTE | 2017-10-06 08:56 | HHI.GIFU ---
Subjective Remarks 3up in chair No bleeding bleeding since Colonoscopy yesterday afebrile No ABD pain, No nausea Objective Vitals I&O Vital Signs Date Time Temp Pulse Resp B/P (MAP) Pulse Ox O2 Delivery O2 Flow Rate FiO2 10/06/17 08:34 97.8 104 20 125/70 (88) 98 10/06/17 04:27 98.6 78 16 119/66 (83) 97 10/05/17 22:57 98.0 69 16 135/61 (85) 99 10/05/17 20:56 98.0 82 16 136/74 (94) 98 10/05/17 17:40 98.0 75 16 148/74 (98) 98 10/05/17 13:34 63 15 180/83 (115) 97 10/05/17 13:15 98.0 64 15 175/68 (103) 97 10/05/17 12:45 70 17 151/69 (96) 98 10/05/17 12:30 73 17 132/74 (93) 98 10/05/17 12:16 98.0 91 15 130/70 (90) 97 I/O 10/05/17 10/05/17 10/05/17 10/06/17 10/06/17 10/06/17 07:00 15:00 23:00 07:00 15:00 23:00 Intake Total 150 ml Balance 150 ml Other 150 ml Physical Exam HEENT: normocephalic; atraumatic; no jaundice. NECK: Neck is supple, no JVD, no lymphadenopathy. CHEST: Chest is clear to auscultation and percussion.No rhonchi CARDIAC: Regular rate and rhythm ABDOMEN: Soft, nondistended, nontender; soft bowel sounds EXTREMITIES: No clubbing, cyanosis, or edema. SKIN: Normal; no rash; no jaundice. [employer]: answers questions appropriately Assessment and Plan Assessment: (1) Rectal bleeding ICD Codes: K62.5 - Hemorrhage of anus and rectum Status: Acute Plan 77-year-old female presented to the hospital on 10/04/2017 with bright red rectal bleeding early in the a.m. after having a bowel movement. She states this was the first onset and did note a large amount of dark followed with bright red bleeding in the toilet without straining . patient has had problems with internal hemorrhoids and diverticulosis in the past has been seen by Dr. Pedro the colorectal surgeon but never had any further surgical workup or procedure. Patient does have a history of GERD and dyspepsia and has been taking omeprazole 20 mg for years. She now complains of some lower abdominal cramping, and still having some very minimal small amount of bloody discharge from her rectum. Current hemoglobin is 12.1. Patient denies any family history of colon cancer. Does note previous EGD and colon done and does have a history of polyps as well as GERD. No current nausea or vomiting or dysphasia. Abdominal x-rays this a.m. show moderate amount of stool in the ascending transverse and proximal descending portions of the colon. Patient is not noted to be taken any blood thinners at this time. 10/05/17, EGD/Colonoscopy , no complication, report pending, reviewed per Dr. Puga. No rectal bleeding, Discussed patient continue Miralax at home, No straining. Plan for DC today, Follow up GI in the office . Plan Protonix 40 mg. BID X 3 months Repeat EGD in 3 mo, f/u in office GI Diet advanced to ADA 1800 Felix, Monitor labs Bowel regimen Reflux precautions Patient was seen per myself and Dr. Puga note was written on his behalf Violeta Melchor October 06, 2017 08:56
[2017-10-06] MEDS: SODIUM CHLORIDE 0.9% FLUSH 10 ML FLUSH IV FLUSH SCH (09:00)
[2017-10-06] MEDS: FLUTICASONE PROPIONATE 50 MCG/ACT 16 GM NASAL SPRAY EACH NARE SCH (09:00)
[2017-10-06] MEDS: CETIRIZINE HCL 10 MG TAB PO SCH (09:43)
[2017-10-06] MEDS: PANTOPRAZOLE SOD 40 MG DELAYED RELEASE TAB PO SCH (09:43)
[2017-10-06] MEDS: PRIMIDONE 250 MG TAB PO SCH (09:43)
[2017-10-06] MEDS: LOSARTAN 50 MG TAB PO SCH (09:43)
[2017-10-06 11:00] LABS: AUTOMATED NEUTROPHIL # 5.4 TH/MM3 (1.8-7.7); BASOPHIL % 0.4 % (0.0-2.0); EOSINOPHIL # 0.2 TH/MM3 (0-0.4); EOSINOPHIL % 3.1 % (0.0-4.0); HEMATOCRIT 33.6 % (35.0-46.0); HEMOGLOBIN 11.3 GM/DL (11.6-15.3); LYMPH % 19.4 % (9.0-44.0); LYMPHOCYTE # 1.5 TH/MM3 (1.0-4.8); MEAN CELL VOLUME 93.5 FL (80.0-100.0); MEAN CORPUSCULAR HEMOGLOBIN 31.3 PG (27.0-34.0); MEAN CORPUSCULAR HGB CONC 33.5 % (32.0-36.0); MONO % 5.5 % (0.0-8.0); MONOCYTE # 0.4 TH/MM3 (0-0.9); NEUT % 71.6 % (16.0-70.0); PLATELET COUNT 290 TH/MM3 (150-450); RED BLOOD COUNT 3.59 MIL/MM3 (4.00-5.30); WHITE BLOOD COUNT 7.5 TH/MM3 (4.0-11.0)
[2017-10-06 11:31] LABS: BICARBONATE 27.1 MEQ/L (21.0-32.0); CALCIUM 8.6 MG/DL (8.5-10.1); CREATININE 0.98 MG/DL (0.50-1.00)
[2017-10-06 11:51] VITALS: BP 103/50; PULSE 88; RESP 20; TEMP 98; O2SAT 98
[2017-10-06] MEDS ORDERED: PANT40TA3 PO (14:43)
[2017-10-06] MEDS ORDERED: MIRA3350 PO (14:50)
--- NOTE | 2017-10-06 15:26 | HHI.DS ---
Discharge Summary Admission Date October 04, 2017 at 05:37 Discharge Date: October 06, 2017 Admitting Diagnosis rectal bleeding (1) Rectal bleeding ICD Code: K62.5 - Hemorrhage of anus and rectum Diagnosis: Principal Status: Acute Procedures EGD and colonoscopy Brief History - From Admission 77 year old female with a history of HTN, DM2, Asthma, internal hemorrhoids and diverticulosis presented to the emergency department for evaluation of rectal bleeding. Patient sat on the toilet last night and had bright red blood per rectum in the toilet. Patient has a history 2 years ago of having a heavy bleed after having C. difficile she had excessive diarrhea and then return to blood. She also says she had a episode of bleeding from hemorrhoids. She had seen Dr. Pedro the colorectal surgeon but denies ever having surgery or any need for colostomy. Patient is not diaphoretic not hypotensive however she does have bright red blood on her lower legs and feet. She denies abdomen pain she denies change in stool color she denies any other symptoms no pain in her abdomen. She reports having had a colonoscopy years ago with no findings. CBC/BMP: 10/06/17 1046 10/06/17 1046 Significant Findings Laboratory Tests Test 10/04/17 03:00 10/04/17 03:25 10/04/17 04:55 10/04/17 09:00 Red Blood Count 3.96 MIL/MM3 (4.00-5.30) Monocytes (%) (Auto) 8.1 % (0.0-8.0) Blood Urea Nitrogen 19 MG/DL (7-18) Random Glucose 148 MG/DL (74-106) Albumin 3.3 GM/DL (3.4-5.0) Alkaline Phosphatase 119 U/L (45-117) Aspartate Amino Transf (AST/SGOT) 14 U/L (15-37) Estimat Glomerular Filtration Rate 82 ML/MIN (>89) Urine Occult Blood MOD (NEG) Urine Leukocyte Esterase TRACE (NEG) Urine Bacteria RARE /hpf (NONE) Urine Mucus FEW /lpf (OCC) Test 10/04/17 19:49 10/05/17 05:30 10/06/17 10:46 Hemoglobin 10.9 GM/DL (11.6-15.3) 10.0 GM/DL (11.6-15.3) 11.3 GM/DL (11.6-15.3) Hematocrit 32.8 % (35.0-46.0) 29.2 % (35.0-46.0) 33.6 % (35.0-46.0) Red Blood Count 3.14 MIL/MM3 (4.00-5.30) 3.59 MIL/MM3 (4.00-5.30) Neutrophils (%) (Auto) 71.6 % (16.0-70.0) Random Glucose 155 MG/DL (74-106) Potassium Level 3.4 MEQ/L (3.5-5.1) Estimat Glomerular Filtration Rate 67 ML/MIN (>89) Imaging Last Impressions Abdomen X-Ray 10/04/17 0000 Signed Impressions: CONCLUSION: Moderate stool in the colon. This appears to be in the ascending, transverse an d proximal descending portions of the colon. PE at Discharge GENERAL: This is a well-nourished, well-developed patient, in no apparent distress. SKIN: No rashes, ecchymoses or lesions. Cool and dry. CARDIOVASCULAR: Regular rate and rhythm without murmurs, gallops, or rubs. RESPIRATORY: Clear to auscultation. Breath sounds equal bilaterally. No wheezes , rales, or rhonchi. GASTROINTESTINAL: Abdomen soft, non-tender, nondistended. No guarding. MUSCULOSKELETAL: Extremities without clubbing, cyanosis, or edema. No joint tenderness, effusion, or edema noted. No calf tenderness. Negative Homans sign bilaterally. NEUROLOGICAL: Awake and alert. Cranial nerves II through XII intact. Motor and sensory grossly within normal limits. Five out of 5 muscle strength in all muscle groups. Normal speech. Hospital Course 74 year old female with history of internal hemorrhoids and diverticulosis and prior GI bleed presents with lower gastrointestinal bleeding per rectum. Gastrointestinal bleed- Rectal bleeding. No recurrence and hemodynamically stable. -Status post endoscopy results not available. Per GI , Protonix 40 mg. BID X 3 months Repeat EGD in 3 mo, f/u in office GI Diet advanced to ADA 1800 Felix, Monitor labs Bowel regimen Reflux precautions - Patient follows with CRS as OP Francisco Willis Anemia secondary to acute blood loss. Asymptomatic GERD and hiatal hernia. - Continue PPIs Diabetes type II. - Hold metformin - Low dose sliding scale - Hold metformin - Diabetic diet. Hypertension. Restart home meds. On losartan . Monitor BP and adjust meds as need. Asthma, controlled at this time - Flovent 2 puffs bid. - Duonebs q6hr PRN for shortness of breath. DVT ppx: SCD/TEDs. CI chemical ppx as patient with rectal bleeding Pt Condition on Discharge: Stable Discharge Disposition: Discharge Home Discharge Time: > 30 minutes Discharge Instructions DIET: Follow Instructions for: Heart Healthy Diet, Diabetic Diet Additional Diet Instructions: Anti-reflux measures Activities you can perform: See Additionl Instruction Other Activity Instructions: Per PT recommendations Follow up Referrals: Appointment for Follow Up Colorectal Surgery Gastroenterology - 1 Week PCP Follow-up - 2-3 Days New Orders: BASIC METABOLIC PROF - 2-3 Days New Medications: Polyethylene Glycol 3350 Powder (Miralax Powder) 17 Gm Powd 17 GM PO DAILY for Constipation, #1 CAN 0 Refills Mix and dissolve one measuring cap-ful (17 grams) in water or juice. Pantoprazole (Pantoprazole) 40 Mg Tab 40 MG PO BID for GERD, #60 TAB 2 Refills Continued Medications: Fluticasone Nasal [place] (Fluticasone Nasal [place]) 50 Mcg/Act Naspr 50 MCG EACH NARE BID for Allergy Management, #1 BOTTLE 0 Refills 50 mcg/spray Hydrocodone-Acetaminophen (Hydrocodone-Acetaminophen) 5-325 mg Tab 1 TAB PO Q4H PRN for PAIN, TAB 0 Refills Levocetirizine (Levocetirizine) 5 Mg Tab 5 MG PO DAILY for Allergy Management, #30 TAB 0 Refills Losartan (Losartan) 50 Mg Tab 50 MG PO DAILY for Blood Pressure Management, #30 TAB 0 Refills Metformin (Metformin) 500 Mg Tab 500 MG PO DAILY for Blood Sugar Management, #30 TAB 0 Refills With a meal Multiple Vitamins W/ Minerals (Centrum Silver Adult 50+) 1 Tab Tab 1 TAB PO DAILY Primidone (Primidone) 250 Mg Tablet 1 TAB PO DAILY Discontinued Medications: Omeprazole (Omeprazole) 20 Mg Tab 20 MG PO DAILY, #30 TAB 0 Refills Justo To MD October 06, 2017 15:26
[2017-10-06] MEDS ORDERED: POTASSIUM CHLORIDE 10 MEQ CONTROLLED RELEASE TAB PO ONE (15:30)
[2017-10-06] MEDS ORDERED: PANTOPRAZOLE SOD 40 MG DELAYED RELEASE TAB PO SCH (21:00)
== END 2017-10-06 17:52 | disposition home or self-care (01) ==
LOC: NEPE 02:32 → NEDA 05:37 → NEDH 07:42 → NEPFCDU 16:04
PROVIDERS: ADMIT Internal Medicine; ATTEND Internal Medicine
DX: K62.5 Hemorrhage of anus and rectum (principal); D50.0 Iron deficiency anemia secondary to blood loss (chronic); K44.9 Diaphragmatic hernia without obstruction or gangrene; K64.8 Other hemorrhoids; K57.30 Diverticulosis of large intestine without perforation or abscess without bleeding; K21.9 Gastro-esophageal reflux disease without esophagitis; E11.9 Type 2 diabetes mellitus without complications; K59.00 Constipation, unspecified; I10 Essential (primary) hypertension; J45.909 Unspecified asthma, uncomplicated; Z79.84 Long term (current) use of oral hypoglycemic drugs; Z79.51 Long term (current) use of inhaled steroids; R10.30 Lower abdominal pain, unspecified; Z79.899 Other long term (current) drug therapy; Z86.010 Personal history of colon polyps; E07.9 Disorder of thyroid, unspecified
CPT/HCPCS: 00813; 43235; 45378; 74019; 80048; 80053; 81001; 82948; 83690; 83735; 85014; 85018; 85025; 85027; 85610; 85730; 86850; 86900; 86901; 87493; 93005; 96374; 96375; 97162; 99285; C9113; G0378; G8987; G8988